=== PATIENT | male | born 1990 ===

== ENCOUNTER 2020-05-28 09:43 | Day surgery (SDC) | payer BC ==
[~2020-05-28 09:43] MED LIST: Lactated Ringers 1,000 ML IV SCH; Lidocaine 1% 4 ML ONE; Lidocaine 1%/Sod Bicarbonate in NS 8.4% 1 ML Syringe IDERM PRN; Midazolam 1 MG/ML 2 ML SDV ONE; Propofol 200 MG/20 ML SDV ONE; Sodium Chloride 0.9% 10 ML Syringe FLUSH PRN
--- NOTE | 2020-05-28 11:18 | PCM.PREANE ---
Preanesthetic Assessment - Procedure Proposed Procedure: diag egd - Anesthesia/Transfusion/Family Hx Anesthesia History: Prior Anesthesia Without Reaction Family History of Anesthesia Reaction: No Transfusion History: No Prior Transfusion(s) - Review of Systems General: No Symptoms Pulmonary: No Symptoms Cardiovascular: No Symptoms Gastrointestinal: No Symptoms Neurological: No Symptoms Other: Reports: None - Physical Assessment NPO Status Date: 05/27/20 NPO Status Time: 22:00 Vital Signs: 140/88 76 98% 97.4 14 Height: 5 ft 6 in Weight: 86.7 kg ASA Class: 2 Mental Status: Alert & Oriented x3 Airway Class: Mallampati = 1 Dentition: Reports: Normal Dentition Thyro-Mental Finger Breadths: 3 Mouth Opening Finger Breadths: 3 ROM/Head Extension: Full Lungs: Clear to Auscultation, Normal Respiratory Effort Cardiovascular: Regular Rate, Regular Rhythm - Allergies Allergies/Adverse Reactions: Allergies Allergy/AdvReac Type Severity Reaction Status Date / Time No Known Allergies Allergy Verified 05/27/20 13:40 - Blood Blood Available: No - Acknowledgements Anesthesia Type Planned: MAC Pt an Appropriate Candidate for the Planned Anesthesia: Yes Alternatives and Risks of Anesthesia Discussed w Pt/Guardian: Yes Pt/Guardian Understands and Agrees with Anesthesia Plan: Yes PreAnesthesia Questionnaire - Past Health History Medical/Surgical History: Denies Medical/Surgical History HEENT History: Reports: Allergic Rhinitis Cardiovascular History: Reports: None Respiratory History: Reports: None Gastrointestinal History: Reports: GERD Musculoskeletal History: Reports: None Neurological History: Reports: None Oncologic (Cancer) History: Reports: None - Past Surgical History HEENT Surgical History: Reports: None - SUBSTANCE USE Tobacco Use Status *Q: Never Tobacco User Tobacco Use Within Last Twelve Months: No Second Hand Smoke Exposure: No Days Per Week of Alcohol Use: 0 Recreational Drug Use History: No - HOME MEDS Home Medications: Home Meds Omeprazole Magnesium [Prilosec Otc] 20 mg PO DAILY 05/27/20 [History] Sucralfate [Carafate] 1 gm PO QID 05/27/20 [History] - CURRENT (IN HOUSE) MEDS Current Meds: Current Medications Lactated Ringer's (Ringers, Lactated) 1,000 mls @ 125 mls/hr IV ASDIRECTED REGLA Stop: 05/28/20 23:00 Lidocaine/Sodium Bicarbonate (Buffered Lidocaine 1% In Ns 8.4%) 0.25 ml IDERM ONETIME PRN PRN Reason: Prior to IV Start Stop: 05/28/20 18:00 Sodium Chloride (Saline Flush) 10 ml FLUSH ASDIRECTED PRN PRN Reason: Keep Vein Open Stop: 05/28/20 18:00 Discontinued Medications Lidocaine HCl (Xylocaine-Mpf 1%) Confirm Administered Dose 4 mls @ as directed .ROUTE .STK-MED ONE Stop: 05/28/20 09:36 Midazolam HCl (Versed 1 Mg/Ml) Confirm Administered Dose 2 mg .ROUTE .STK-MED ONE Stop: 05/28/20 09:36 Propofol (Diprivan 20 Ml) Confirm Administered Dose 400 mg .ROUTE .STK-MED ONE Stop: 05/28/20 09:37
--- NOTE | 2020-05-28 11:43 | PCM.PRNOTE ---
- Free Text/Narrative Note: Date: 05/28/2020 Procedure: diagnostic esophagogastroduodenoscopy Indication: refractory reflux symptoms Endoscopist: Felix Dias MD Findings: some erythematous change at pyloric antrum. Friable gastric mucosa with mucosal tearing witnessed on retroflexion of the scope. No significant hiatal hernia appreciated but lower esophageal sphincter appeared incompetent. Distal esophagitis with findings suggestive of metaplasia. Detailed Report: The patient was taken to the endoscopy suite and placed in left lateral decubitus position. A bite block was placed, timeout performed, and monitored anesthesia care initiated. The endoscope was inserted into the mouth and advanced to the duodenum. The duodenum appeared normal. There was minor erythema near the pylorus on the gastric side. A biopsy with cold forceps was obtained. No ulcers were noted. There were linear tears in the proximal gastric mucosa related to gastric distention and retroflexion on the scope within the stomach. The lower esophageal sphincter appeared incompetent and the distal half of the esophageal lumen was clearly visible on retroflexion within the stomach. There did not appear to be any significant associated hiatal hernia. 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 Biopsies were obtained of the distal esophagus. Air was suctioned and the scope withdrawn. The patient tolerated the procedure well.
--- NOTE | 2020-05-28 11:45 | PCM48HPAN ---
Post Anesthesia Note - EVALUATION WITHIN 48HRS OF ANESTHETIC Vital Signs in Normal Range: Yes Patient Participated in Evaluation: Yes Respiratory Function Stable: Yes Airway Patent: Yes Cardiovascular Function Stable: Yes Hydration Status Stable: Yes Pain Control Satisfactory: Yes Nausea and Vomiting Control Satisfactory: Yes Mental Status Recovered: Yes Vital Signs: Last Vital Signs Temp 97.1 F 05/28/20 10:20 Pulse 76 05/28/20 10:20 Resp 14 05/28/20 10:20 BP 140/88 05/28/20 10:20 Pulse Ox 98 05/28/20 10:20 1139 137/97 95% 80 20 97.7
== END 2020-05-28 12:38 | disposition home or self-care (01) ==
LOC: JD.SDS 09:43
PROVIDERS: ATTEND Surgery
DX: K29.50 Unspecified chronic gastritis without bleeding (principal); K21.9 Gastro-esophageal reflux disease without esophagitis; Z79.899 Other long term (current) drug therapy
CPT/HCPCS: 43239; J2250; J2704; J7120; 00731

== ENCOUNTER 2021-04-27 08:00 | Inpatient (IN) | payer BC ==
[~2021-04-27 08:00] MED LIST changes: -Lidocaine 1% 4 ML ONE; -Midazolam 1 MG/ML 2 ML SDV ONE; -Propofol 200 MG/20 ML SDV ONE; -Sodium Chloride 0.9% 10 ML Syringe FLUSH PRN
[2021-04-27] MEDS ORDERED: Succinylcholine/Sod PF 100 MG/5 ML SYRINGE IV ONE (09:39)
[2021-04-27] MEDS ORDERED: Propofol 200 MG/20 ML SDV ONE (09:39)
[2021-04-27] MEDS ORDERED: fentaNYL 100 MCG/2 ML SDV ONE ×2 (09:39→10:52)
[2021-04-27] MEDS ORDERED: Midazolam 1 MG/ML 2 ML SDV ONE (09:39)
[2021-04-27] MEDS ORDERED: Rocuronium 50 MG/5 ML Vial ONE ×2 (09:39→11:39)
[2021-04-27] MEDS ORDERED: ceFAZolin 1 GM Vial ONE (09:40)
[2021-04-27] MEDS ORDERED: Bupivacaine 0.5% 30 ML SDV ONE (09:51)
[2021-04-27] MEDS ORDERED: HYDROmorphone 0.5 MG/0.5 ML Syringe ONE (11:23)
[2021-04-27] MEDS ORDERED: Ondansetron 4 MG/2 ML SDV ONE (11:29)
[2021-04-27] MEDS ORDERED: Dexamethasone 4 MG/ML 5 ML MDV ONE (11:31)
[2021-04-27] MEDS ORDERED: HYDROmorphone 0.5 MG/0.5 ML Syringe IVPUSH PRN (12:42)
[2021-04-27] MEDS ORDERED: fentaNYL 100 MCG/2 ML SDV IVPUSH PRN (12:42)
[2021-04-27] MEDS ORDERED: Ondansetron 4 MG/2 ML SDV IVPUSH PRN (12:42)
[2021-04-27] MEDS ORDERED: Acetaminophen 325 MG Tab PO SCH (13:00)
[2021-04-27] MEDS ORDERED: Lactated Ringers 1,000 ML IV SCH (13:00)
[2021-04-27] MEDS ORDERED: Promethazine 12.5 MG in Sodium Chloride 0.9% 50 ML IV PRN (13:03)
[2021-04-27] MEDS ORDERED: Ondansetron 4 MG in Sodium Chloride 0.9% 50 ML IV PRN (13:03)
[2021-04-27] MEDS ORDERED: Simethicone 80 MG Tab.Chew PO PRN (13:04)
[2021-04-27] MEDS ORDERED: Ondansetron 4 MG/2 ML SDV IV PRN (14:34)
[2021-04-27] MEDS: Acetaminophen 325 MG Tab PO SCH ×2 (15:05→21:34)
[2021-04-27] MEDS: oxyCODONE 5 MG Tab PO PRN ×2 (15:06→20:13)
[2021-04-27] MEDS: Heparin Sodium 5,000 Units/ML Vial SUBCUT SCH ×2 (15:06→23:42)
[2021-04-27] MEDS: Morphine 2 MG/ML SYRINGE IVPUSH PRN (23:42)
[2021-04-28] MEDS: oxyCODONE 5 MG Tab PO PRN ×4 (00:18→14:16)
[2021-04-28] MEDS: Acetaminophen 325 MG Tab PO SCH ×2 (05:10→13:26)
[2021-04-28] MEDS: Heparin Sodium 5,000 Units/ML Vial SUBCUT SCH ×2 (06:53→13:27)
[2021-04-28] MEDS: Sodium Chloride 0.9% 10 ML Syringe FLUSH SCH (08:10)
[2021-04-28] MEDS: Morphine 2 MG/ML SYRINGE IVPUSH PRN (12:03)
== END 2021-04-28 14:52 | disposition home or self-care (01) | DRG 220 ==
LOC: JD.MS 14:25
PROVIDERS: ADMIT Surgery; ATTEND Surgery
PROC: 0BQT4ZZ Repair Diaphragm, Percutaneous Endoscopic Approach (ICD-10-PCS; principal; 2021-04-27)
PROC: 0DV44ZZ Restriction of Esophagogastric Junction, Percutaneous Endoscopic Approach (ICD-10-PCS; 2021-04-27)
DX: K44.9 Diaphragmatic hernia without obstruction or gangrene (principal); Z79.899 Other long term (current) drug therapy
CPT/HCPCS: 36415; 80048; 85025; A9270-GY; J0330; J0690; J1100; J1170; J1644; J2250; J2270; J2405; J2704; J2710; J3010; J3490; J7120